=== PATIENT | male | born 1960 | race Caucasian/White ===

== ENCOUNTER 2016-12-04 14:26 | Emergency (ER) | payer OTHER ==
[~2016-12-04 14:26] MED LIST: AMOXICILLIN500 M1 PO; ASPIRIN81 MG PO; BLOOD PRESSURE MEDS; IBUPROFEN800 MG PO; NO MEDICATIONS; ZESTORETIC 20-1 EAC1 PO
== END 2016-12-04 15:43 | disposition home or self-care (01) ==
LOC: SED 14:26
DX: L02.416 Cutaneous abscess of left lower limb (principal); I10 Essential (primary) hypertension; F17.210 Nicotine dependence, cigarettes, uncomplicated; Z88.5 Allergy status to narcotic agent
CPT/HCPCS: 99282